=== PATIENT | male | born 1980 | race Hispanic/Latino ===

== ENCOUNTER 2024-10-31 11:29 | Emergency (ER) | payer OTHER ==
[~2024-10-31] VITALS: Ht 167.6 cm; Wt 62.6 kg
[2024-10-31 12:40] VITALS: BP 140/86
--- OUTSIDE RECORDS SUMMARY | 2024-10-31 12:55 | XMS ---
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 ([facility]) <UNAVAIL> PHONE: [phone] Soumya has no Care Guidelines for this patient. Puneet VISIT COUNT (12 MO.) 1 LUCAS [facility]ston [facility] TOTAL 2 NOTE: Visits indicate total known visits. ED/UCC VISIT TRACKING (12 MO.) 10/31/2024 11:30 LUCAS Garcia [place] TYPE: Emergency COMPLAINT: - FACIAL LACERATION 10/08/2024 08:34 [facility] [place] TYPE: Emergency DIAGNOSES: - Laceration without foreign body of nose, initial encounter - nose injury INPATIENT VISIT TRACKING (12 MO.) No inpatient visits to display in this time frame [email or web address]
== END 2024-10-31 12:40 | disposition home or self-care (01) ==
LOC: ED 11:29
DX: S62.112A Displaced fracture of triquetrum [cuneiform] bone, left wrist, initial encounter for closed fracture (principal); S01.112A Laceration without foreign body of left eyelid and periocular area, initial encounter; W11.XXXA Fall on and from ladder, initial encounter; Y93.H3 Activity, building and construction
CPT/HCPCS: 12013; 73130; 99283